=== PATIENT | male | born 1960 | race African-American/Black ===

== ENCOUNTER 2017-09-15 19:44 | Inpatient (IN) | payer BC ==
[~2017-09-15] VITALS: Ht 172.7 cm; Wt 103.2 kg
[~2017-09-15 19:44] MED LIST: (None)3.5 GM OP; ACIPHEX20 MG PO; ALLERGY10 MG PO; ASPIRIN EC325 MG PO; ASPIRIN EC81 MG PO; CANASA1000 MG RE; CIPRO500 MG OR; CIPROFLOXACIN500 M1 PO; CORTISPORIN OP7.5 ML OP; DOXY-CAPS100 MG PO; EPIPEN0.3 MG IM; FLOMAX0.4 M1 PO; LISINOPRIL20 M1 OR; LISINOPRIL20 M1 PO; LORTAB 7.57.5 MG PO; MEDDOSEPAK OR; METOPROL TAR50 MG OR; MULTIVITAMIN PO; NITROGLYCER0.4 MG SL; PATANOL0.1 % OP; PERCOCET 5/325M1 TAB PO; SIMVASTATIN20 MG OR; SIMVASTATIN40 MG PO; TAMSULOSIN0.4 MG OR; TORADOL OR
[2017-09-15] MEDS ORDERED: TAMSULOSIN0.4 MG PO (20:19)
[2017-09-15 22:57] LABS: HEMATOCRIT 39.8 % (39.0-50.0); IMMATURE GRANULOCYTES 0.2 % (0.0-1.0); MEAN CELL VOLUME 85.2 fL CALC (80.0-100.0); MEAN CORPUSCULAR HGB 27.8 pG CALC (26.0-32.0); MEAN CORPUSCULAR HGB CONC 32.7 g/L CALC (32.0-36.0); NEUT# 5.3 thou/uL (1.82-7.42); RED BLOOD COUNT 4.67 mill/uL (4.70-6.10); RED CELL DISTRI WIDTH 14.4 % (11.5-15.5)
[2017-09-15 22:58] LABS: URINE BILIRUBIN - DIPSTICK NEGATIVE (NEGATIVE); URINE BLOOD DIPSTICK TRACE-INTACT (NEGATIVE); URINE COLOR YELLOW; URINE GLUCOSE - DIPSTICK NEGATIVE (NEGATIVE); URINE KETONE NEGATIVE (NEGATIVE); URINE NITRITE - DIPSTICK NEGATIVE (Negative); URINE PH 5.5 (4.5-8.0); URINE PROTEIN - DIPSTICK NEGATIVE (NEG-TRACE); URINE SPECIFIC GRAVITY 1.025; URINE UROBILINOGEN - DIPSTICK 0.2 E.U./dL (0.2)
[2017-09-15 23:14] LABS: URINE CLARITY CLEAR; URINE LEUK ESTERASE SMALL (NEGATIVE)
[2017-09-15 23:15] LABS: URINE BACTERIA RARE hpf
[2017-09-15 23:45] LABS: ALBUMIN 3.9 g/dL (3.2-5.0); BILIRUBIN, TOTAL 0.1 mg/dL (0.0-1.4); POTASSIUM 4.6 mmol/l (3.5-5.1)
[2017-09-16] VITALS (8 sets, daily range): BP systolic 114–143; BP diastolic 70–93
== END 2017-09-16 18:30 | disposition home or self-care (01) | DRG 690 ==
LOC: ED 19:44 → ED-I 09-16 00:55 → ED 09-16 02:13 → MS2 09-16 02:14
PROVIDERS: Emergency Medicine; ADMIT Internal Medicine; ATTEND Internal Medicine
PROC: 0T768DZ Dilation of Right Ureter with Intraluminal Device, Via Natural or Artificial Opening Endoscopic (ICD-10-PCS; principal; 2017-09-16)
PROC: BT1DZZZ Fluoroscopy of Right Kidney, Ureter and Bladder (ICD-10-PCS; 2017-09-16)
DX: N13.6 Pyonephrosis (principal); N17.9 Acute kidney failure, unspecified; K50.90 Crohn's disease, unspecified, without complications; I10 Essential (primary) hypertension; I25.10 Atherosclerotic heart disease of native coronary artery without angina pectoris; E78.5 Hyperlipidemia, unspecified; N40.0 Benign prostatic hyperplasia without lower urinary tract symptoms; I25.2 Old myocardial infarction; Z90.49 Acquired absence of other specified parts of digestive tract; Z87.442 Personal history of urinary calculi
CPT/HCPCS: J1956; Q9967

== ENCOUNTER 2020-02-04 10:03 | Emergency (ER) | payer BC ==
[~2020-02-04] VITALS: Ht 172.7 cm; Wt 150.0 kg
[~2020-02-04 10:03] MED LIST changes: +TAMSULOSIN0.4 MG PO
[2020-02-04] MEDS ORDERED: KEFLEX500 M1 PO (11:34)
[2020-02-04 11:52] VITALS: BP 135/73
== END 2020-02-04 11:52 | disposition home or self-care (01) | DRG 605 ==
LOC: ED 10:03
PROC: 0HQLXZZ Repair Left Lower Leg Skin, External Approach (ICD-10-PCS; principal; 2020-02-04)
DX: S81.812A Laceration without foreign body, left lower leg, initial encounter (principal); I10 Essential (primary) hypertension; W17.89XA Other fall from one level to another, initial encounter; Y93.89 Activity, other specified; Y92.89 Other specified places as the place of occurrence of the external cause; Y99.0 Civilian activity done for income or pay

== ENCOUNTER 2020-02-14 11:00 | Emergency (ER) | payer BC ==
[~2020-02-14] VITALS: Ht 172.7 cm; Wt 100.0 kg
[~2020-02-14 11:00] MED LIST changes: +KEFLEX500 M1 PO
[2020-02-14 12:05] VITALS: BP 132/83
== END 2020-02-14 12:05 | disposition home or self-care (01) | DRG 950 ==
LOC: ED 11:00
DX: S81.812D Laceration without foreign body, left lower leg, subsequent encounter (principal); X58.XXXD Exposure to other specified factors, subsequent encounter; I10 Essential (primary) hypertension